=== PATIENT | female | born 1960 | race Caucasian/White ===

== ENCOUNTER → 2017-10-02 | Outpatient (CLI) | payer OTHER ==
--- NOTE | 2017-10-02 12:46 | MAMMOGRAPHY REPORT ---
BILATERAL DIGITAL SCREENING MAMMOGRAM TOMOSYNTHESIS WITH CAD: 10/02/2017 CLINICAL HISTORY: Routine screening. TECHNIQUE: Breast tomosynthesis in addition to standard 2D mammography was performed. Current study was also evaluated with a Computer Aided Detection (CAD) system. COMPARISON: Comparison is made to exams dated: 09/19/2016 mammogram, 09/14/2015 mammogram, 07/07/2014 mammogram, 07/06/2013 mammogram, 06/06/2011 mammogram, and 07/02/2012 mammogram - [facility]. BREAST COMPOSITION: There are scattered areas of fibroglandular density in both breasts. FINDINGS: The parenchymal pattern is unchanged. No developing mass, architectural distortion or clus ter of suspicious microcalcifications is seen in either breast. IMPRESSION: ACR BI-RADS CATEGORY 2: BENIGN There is no mammographic evidence of malignancy. A 1 year screening mammogram is recommended. The pa tient will receive written notification of the results. Approximately 10% of breast cancers are not detected with mammography. A negative mammographic report should not delay biopsy if a clinically suggestive mass is present. Lydia Kathleen M.D. ay/:10/02/2017 10:05:05 Premium Cancellation Clerk: Abraham HARRIS(Kai)(Dominique), [facility] letter sent: Normal 1/2 BI-RADS Code: ACR BI-RADS Category 2: Benign
== END | disposition home or self-care (01) ==
LOC: C.MAMM 09:23
PROVIDERS: ATTEND Family Medicine
DX: Z12.31 Encounter for screening mammogram for malignant neoplasm of breast (principal)

== ENCOUNTER 2021-04-07 10:59 | Inpatient (IN) ==
[2021-04-07] MEDS ORDERED: OPTIRAY 320 125ml IV ONE (11:14)
[2021-04-07] MEDS ORDERED: LABETALOL HCL IV 5 MG/ML 20ML IV ONE (11:22)
[2021-04-07 11:26] LABS: Basophils # (auto) 0.01 K/uL (0-0.2); Basophils % (auto) 0.1 %; Eosinophils # (auto) 0.11 K/uL (0-0.5); Eosinophils % (auto) 1.6 %; Hematocrit (blood only) 47.3 % (37-47); Hemoglobin 15.7 g/dL (12.0-16.0); Lymphocytes # (auto) 2.19 K/uL (1.2-3.4); Lymphocytes % (auto) 31.9 %; Mean Corpuscular Hemoglobin 29.3 pg (25-34); Mean Corpuscular Hgb Conc 33.2 g/dL (32-36); Mean Corpuscular Volume 88.4 fL (80-100); Mean Platelet Volume 9.9 fL (7.4-10.4); Monocytes # (auto) 0.49 K/uL (0.11-0.59); Monocytes % (auto) 7.1 %; Neutrophils # (auto) 4.06 K/uL (1.4-6.5); Neutrophils % (auto) 59.3 %; Platelet Count 368 K/uL (130-400); RDW Coefficient of Variation 12.7 % (11.5-14.5); RDW Standard Deviation 40.9 fL (36.4-46.3); Red Blood Count 5.35 M/uL (4.2-5.4); White Blood Count 6.86 K/uL (4.8-10.8)
[2021-04-07 11:37] LABS: INR 0.9 (0.9-1.1); Partial Thromboplastin Time 25.3 Seconds (21.0-31.0); Prothrombin Time 9.6 Seconds (9.0-12.0)
--- NOTE | 2021-04-07 11:37 | CT Scan Report ---
CT head/brain wo con CLINICAL HISTORY: Stroke Like Symptoms COMPARISON STUDY: No previous studies for comparison. TECHNIQUE: Axial CT of the brain is performed from the vertex to the skull base. IV contrast was not administered for this examination. A dose lowering technique was utilized adhering to the principles of ALARA. CT DOSE: FINDINGS: No acute intracranial hemorrhage, no midline shift or space occupying lesions. Questionable asymmetrical density within the anatomical region of the left MCA (series 2 image 10) is seen There is no evidence of pathologic ventricular dilatation. No acute depressed skull fracture seen. Visualized paranasal sinuses and mastoid air cells are patent and well-aerated. IMPRESSION: 1. No acute intracranial hemorrhage, no midline shift or space occupying lesions. Findings were [place] smitted to emergency Department during time of this dictation. 2. Questionable increase in attenuation within left MCA might represent thrombosis or artifact. ACT 112: Positive. There are findings on this exam that require communication between the performing entity and the patient following Patient Test Result Information Act ([place] Act 112) guidelines. The above report was generated using voice recognition software. It may contain grammatical, syntax o r spelling errors. Electronically signed by: Gloria Rae DO 04/07/2021 11:36 AM
[2021-04-07 11:42] LABS: Alanine Aminotransferase 29 U/L (12-78); Albumin Level 3.8 gm/dl (3.4-5.0); Aspartate Aminotransferase 15 U/L (15-37); BUN Creatinine Ratio 14.6 (10-20); Blood Urea Nitrogen 12 mg/dl (7-18); Carbon Dioxide 30 mmol/L (21-32); Chloride 103 mmol/L (98-107); Creatinine Clr Calc Pharmacy 86.8 ml/min; Est GFR (African American) 88.8 ml/min; Est GFR (Non-African American) 76.6 ml/min; Glucose 96 mg/dl (70-99); Magnesium 2.2 mg/dl (1.8-2.4); Potassium 3.6 mmol/L (3.5-5.1); Sodium 138 mmol/L (136-145)
[2021-04-07] MEDS ORDERED: CLOPIDOGREL BISULFATE 300 MG TAB PO STA (11:45)
[2021-04-07] MEDS ORDERED: ASPIRIN CHEW 324 MG PO STA ×2 (11:45→11:53)
[2021-04-07 11:47] LABS: Albumin Globulin Ratio 0.9 (0.9-2); Alkaline Phosphatase 67 U/L (45-117); Bilirubin,Total 0.5 mg/dl (0.2-1); Globulin 4.3 gm/dl (2.5-4.0); Total Protein 8.1 gm/dl (6.4-8.2); Troponin I < 0.015 ng/ml (0-0.045)
--- NOTE | 2021-04-07 11:48 | CT Scan Report ---
CT angio neck with con CLINICAL HISTORY: Stroke Like Symptoms COMPARISON STUDY: No previous studies for comparison. TECHNIQUE: CT angiography was performed from the aortic arch to the skull base. MIP imaging was perfo rmed. The patient was scanned in a dynamic helical fashion during intravenous administration of 119 c c of Optiray. A dose lowering technique was utilized adhering to the principles of ALARA. CT DOSE: Technique: CT angiogram of the carotid and vertebral arteries was obtained using intravenous contrast and 3-D reconstruction. NASCET criteria was utilized. Findings: Bilateral common carotid arteries are patent. Heavy partially calcified plaques are seen within the r ight and left carotid bulb. There is complete occlusion of the right internal carotid artery from its origin to the cavernosal po rtion. Reconstitution of the flow is seen within distal cavernosal aspect of the right internal carot id artery. Left internal carotid artery shows few eccentric calcified plaques and no evidence of hemodynamically significant stenosis. There is left predominant vertebral circulation. Left vertebral artery is patent throughout its cours e. There is diffuse narrowing of the V4 segment of the right vertebral artery and complete occlusion within its distal aspect. . There is no evidence of vertebral dissection. IMPRESSION: 1. Complete occlusion of the right internal carotid artery with mild reconstitution of the flow with in its distal cavernosal aspect. Findings were sent to emergency Department during time of this dicta tion. 2. Left predominant vertebral circulation. 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 ACT 112: Negative or not required by law. The above report was generated using voice recognition software. It may contain grammatical, syntax o r spelling errors. Electronically signed by: Gloria Rae DO 04/07/2021 11:47 AM
[2021-04-07] MEDS ORDERED: SODIUM CHLORIDE 0.9% 1000ML 1,000 ML IV SCH (12:00)
--- NOTE | 2021-04-07 12:08 | CT Scan Report ---
CT angio head w con CLINICAL HISTORY: Stroke Like Symptoms TECHNIQUE: CT angiography of the head was performed in a dynamic helical fashion during intravenous a dministration of 119 cc of Optiray. MIP imaging was performed. A dose lowering technique was utilized adhering to the principles of ALARA. CT DOSE: 1067.47 mGy.cm COMPARISON STUDY: No previous studies for comparison. FINDINGS: Reconstitution of the flow is seen within distal cavernosal and supraclinoid aspect of the right ICA which is diffusely narrowed with irregular border. Also there is diffuse narrowing of the right M1 se gment. Branches of middle and distal aspect of the right MCA are opacified. Left ICA is normally opacified. Slightly irregular contour of the left M1 segment is seen. M2 and distal branches of the left MCA are opacified. Right and left anterior cerebral artery are originated from the left anterior communicating artery. T here is diffuse narrowing of the left anterior cerebral artery throughout its course. Significant diffuse stenosis of the right anterior communicating artery is seen. Basilar artery is normal in caliber and well opacified. origin of the right posterior cerebral artery is seen with diffuse narrowing of its P1 segment and complete occlusion at the P2 segment (series 5 image 90) Left posterior cerebral artery is normally opacified. IMPRESSION: 1. Reconstitution of the flow within distal right ICA. Narrowing of the right MCA and right anterior communicating artery. 2. origin of the right posterior cerebral artery with diffuse narrowing of P1 segment and occl usion at the P2 segment. Findings were transmitted to emergency Department at the time of this dictat ion. 3. Diffuse narrowing and decreased opacification of the left anterior cerebral artery. ACT 112: Negative or not required by law. The above report was generated using voice recognition software. It may contain grammatical, syntax o r spelling errors. Electronically signed by: Gloria Rae DO 04/07/2021 12:07 PM
--- NOTE | 2021-04-07 13:13 | Emergency Department Note ---
History of Present Illness General Chief complaint: Stroke/CVA Symptoms Stated complaint: DIZZY,NUMBNESS TO HANDS,FACE,FEET,CANT WALK WELL Time Seen by Provider: 04/07/21 11:08 History of Present Illness Provider complaint: Left-sided weakness difficulty walking blurry vision left- sided facial numb Onset (ago): minute(s) 15 Location: left Current Pain Intensity: 0 Associated symptoms: no confusion, no chest pain, no cough, no fever/chills, no headaches, no nausea/vomiting, no seizure and no shortness of breath 60-year-old female presents emergency department for left-sided weakness, difficulty walking, left-sided facial numbness, and blurry vision. Patient reports her symptoms began 15 minutes ago. She states she was sitting at her desk working on a computer at a [employer] shift when she notes her symptoms. Patient denies any headache. She denies any blood thinner usage. She denies any trauma or fall. No fever. Home Medications Medication Instructions Recorded Confirmed Type aspirin [Aspirin Low Dose] 81 mg PO QAM 04/07/21 04/07/21 History bupropion HCl [Wellbutrin SR] 150 mg PO QAM 04/07/21 04/07/21 History hydrochlorothiazide 25 mg PO QAM 04/07/21 04/07/21 History metoprolol succinate [Toprol XL] 50 mg PO QAM 04/07/21 04/07/21 History multivitamin [One Daily 1 tab PO QAM 04/07/21 04/07/21 History Multivitamin] omeprazole 40 mg PO QAM 04/07/21 04/07/21 History Allergies Allergy/AdvReac Type Severity Reaction Status Date / Time LYNETTE Inhibitors AdvReac cough Verified 04/07/21 12:41 Past Med/Surg History Medical History (Updated 04/07/21 @ 15:00 by Jerald Jones) Depression Dyslipidemia GERD (gastroesophageal reflux disease) HTN (hypertension) Surgical History Hx of tubal ligation Family History (Updated 04/07/21 @ 13:36 by Aileen Rubin PA-C) Sister Stroke Coronary heart disease Brother Coronary heart disease Father Coronary heart disease Cancer Mother Hypertension Grandmother (Maternal) Diabetes Grandmother (Paternal) Diabetes Social History (Updated 04/07/21 @ 13:36 by Aileen Rubin PA-C) Smoking Status: Former smoker Hx Alcohol Use: No Hx Substance Use: No Preferred Language: Citizen Of [place] Feels Safe at Home: Yes Review of Systems A total of 10 systems reviewed and were otherwise negative Physical Exam Vital Signs Vital Signs - 24 hr 04/07/21 11:01 04/07/21 11:09 04/07/21 11:30 Temperature 36.5 C Temperature Source Temporal Artery Scan Pulse Rate 83 77 81 Pulse Rate from SpO2 Sensor 79 Respiratory Rate 18 Blood Pressure 221/124 H 223/124 H 217/115 H Blood Pressure Mean 156 157 149 Pulse Oximetry 98 98 Oxygen Delivery Method Room Air Sepsis Recent Fever Within 48 Hours No Sepsis New/Unexplained Change in Mental Status No Sepsis Action Taken by Nursing No Action Required 04/07/21 11:46 04/07/21 12:03 04/07/21 12:16 Temperature Temperature Source Pulse Rate 77 63 71 Pulse Rate from SpO2 Sensor 65 71 Respiratory Rate Blood Pressure 191/138 H 219/100 H Blood Pressure Mean 155 139 Pulse Oximetry 97 97 Oxygen Delivery Method Sepsis Recent Fever Within 48 Hours Sepsis New/Unexplained Change in Mental Status Sepsis Action Taken by Nursing 04/07/21 12:31 04/07/21 13:01 04/07/21 13:16 Temperature Temperature Source Pulse Rate 70 71 71 Pulse Rate from SpO2 Sensor Respiratory Rate 21 22 Blood Pressure 202/115 H 214/120 H 206/112 H Blood Pressure Mean 144 151 143 Pulse Oximetry Oxygen Delivery Method Sepsis Recent Fever Within 48 Hours Sepsis New/Unexplained Change in Mental Status Sepsis Action Taken by Nursing 04/07/21 13:31 Temperature Temperature Source Pulse Rate 68 Pulse Rate from SpO2 Sensor Respiratory Rate 14 Blood Pressure 178/111 H Blood Pressure Mean 133 Pulse Oximetry Oxygen Delivery Method Sepsis Recent Fever Within 48 Hours Sepsis New/Unexplained Change in Mental Status Sepsis Action Taken by Nursing Physical Exam GENERAL: She is oriented to person, place, and time. She appears well-developed and well-nourished. She does not appear distressed. HENT: Exam performed. -Head: Normocephalic and atraumatic. -Right Ear: External ear normal. No mastoid tenderness. -Left Ear: External ear normal. No mastoid tenderness. -Mouth/Throat: The oropharynx is clear and moist. No trismus in the jaw. No dental abscesses or uvula swelling. No oropharyngeal exudate or tonsillar abscesses. EYES: Conjunctivae and EOM are normal. Pupils are equal, round, and reactive to light. Right eye exhibits no discharge. Left eye exhibits no discharge. No scleral icterus. NECK: Normal range of motion. Neck supple. No JVD present. No spinous process tenderness present. No carotid bruit present. No rigidity. No tracheal deviation and normal range of motion present. No Brudzinski's sign and no Kernig's sign noted. CV: Normal rate, regular rhythm, normal heart sounds and intact distal pulses. There is no peripheral edema. Palpable radial pulses bue. PULM/CHEST: Effort normal and breath sounds normal. No respiratory distress. No stridor. She has no wheezes. She has no rales. -Chest Wall: She exhibits no tenderness. ABD: The abdomen is soft. Bowel sounds are normal. She has no distension. No mass is present. There is no tenderness. There is no rebound, no guarding, no Varma's sign and no tenderness at McBurney's point. Rovsig negative MUSC/SKEL: Normal range of motion. There is no peripheral edema, tenderness or deformity. LYMPH: No cervical adenopathy. NEURO: NIHSS: 2 (6a:1, 7:1) SKIN: Skin is warm and dry. She is not diaphoretic. PSYCH: She has a normal mood and affect. Behavior is normal. Judgment and thought content normal. Course Course 1108: The patient was evaluated in room B1. A complete history and physical exam was performed Cardiac monitoring: An order was placed for continuous cardiac monitoring. The monitor shows a rate of 70 with sinus rhythm Code stroke called 1120: Spoke with Dr. Jarad Stanley teleneurology will evaluate the patient. 1233: Dr. Abraham examined the patient and does not recommend TPA at this time. Patient will be loaded with Plavix 300 mg and aspirin 243 mg as she took 81 mg of aspirin this morning and admitted to the [facility] team for TIA. Imaging shows no ICH. There is complete occlusion of the right internal carotid artery with mild reconstitution of flow within the distal cavernousal aspect as well as origin of the right posterior cerebral artery with diffuse narrowing of P1 segment occlusion of the P2 segment. Dr. Miller states there is no acute intervention needed for this at this time. She does state that she recommends that the patient not be often movement and doing vigorous therapy as she states the patient is volume dependent and this could exacerbate her sympto ms. I did discuss these findings with the [facility] hospitalist team Sanjuanita who stated to admit to Dr. Mcclain. Administered Medications Sodium Chloride (Nss 1000ml) 1,000 mls @ 80 mls/hr IV .[id number] LEONARDO Stop: 05/07/21 11:59 Last Admin: 04/07/21 12:01 Dose: 80 mls/hr Documented by: [id number] Discontinued Medications Aspirin (Aspirin Chew 324 Mg) 243 mg PO NOW STA Stop: 04/07/21 11:54 Last Admin: 04/07/21 12:00 Dose: 243 mg Documented by: [id number] Clopidogrel Bisulfate (Clopidogrel Bisulfate 300 Mg Tab) 300 mg PO NOW STA Stop: 04/07/21 11:46 Last Admin: 04/07/21 11:52 Dose: 300 mg Documented by: [id number] Ioversol (Optiray 320 125ml) 119 ml IV ONCE ONE Stop: 04/07/21 11:15 Last Admin: 04/07/21 11:15 Dose: 119 ml Documented by: [id number] Medical Decision Making Laboratory Data Result diagrams: 04/07/21 11:15 04/07/21 11:15 Lab Results 04/07/21 04/07/21 04/07/21 Range/Units 11:15 11:15 11:15 WBC 6.86 (4.8-10.8) K/uL RBC 5.35 (4.2-5.4) M/uL Hgb 15.7 (12.0-16.0) g/dL Hct 47.3 H (37-47) % MCV 88.4 (80-100) fL MCH 29.3 (25-34) pg MCHC 33.2 (32-36) g/dL RDW Std Deviation 40.9 (36.4-46.3) fL RDW Coeff of Tiffany 12.7 (11.5-14.5) % Plt Count 368 (130-400) K/uL MPV 9.9 (7.4-10.4) fL Immature Gran % (Auto) 0.0 % Neut % (Auto) 59.3 % Lymph % (Auto) 31.9 % [place] % (Auto) 7.1 % Eos % (Auto) 1.6 % Baso % (Auto) 0.1 % Neut # (Auto) 4.06 (1.4-6.5) K/uL Lymph # (Auto) 2.19 (1.2-3.4) K/uL [place] # (Auto) 0.49 (0.11-0.59) K/uL Eos # (Auto) 0.11 (0-0.5) K/uL Baso # (Auto) 0.01 (0-0.2) K/uL Immature Gran # (Auto) 0.00 (0.00-0.02) K/uL PT 9.6 (9.0-12.0) Seconds INR 0.9 (0.9-1.1) APTT 25.3 (21.0-31.0) Seconds PTT Ratio 1.0 Sodium (136-145) mmol/L Potassium (3.5-5.1) mmol/L Chloride (98-107) mmol/L Carbon Dioxide (21-32) mmol/L Anion Gap (3-11) BUN (7-18) mg/dl Creatinine (0.6-1.2) mg/dl Est Cr Clr Drug Dosing ml/min Est GFR ( Amer) ml/min Est GFR (Non-Af Amer) ml/min BUN/Creatinine Ratio (10-20) Glucose (70-99) mg/dl POC Glucose (70-99) mg/dl Calcium (8.5-10.1) mg/dl Magnesium (1.8-2.4) mg/dl Total Bilirubin (0.2-1) mg/dl AST (15-37) U/L ALT (12-78) U/L Alkaline Phosphatase (45-117) U/L Troponin I (0-0.045) ng/ml Total Protein (6.4-8.2) gm/dl Albumin (3.4-5.0) gm/dl Globulin (2.5-4.0) gm/dl Albumin/Globulin Ratio (0.9-2) TSH (0.300-4.500) uIu/ml COVID-19 Eval Order SARS-CoV-2 (PCR) (Negative) Blood Type A Positive Antibody Screen NEGATIVE 04/07/21 04/07/21 04/07/21 Range/Units 11:15 11:15 11:16 WBC (4.8-10.8) K/uL RBC (4.2-5.4) M/uL Hgb (12.0-16.0) g/dL Hct (37-47) % MCV (80-100) fL MCH (25-34) pg MCHC (32-36) g/dL RDW Std Deviation (36.4-46.3) fL RDW Coeff of Tiffany (11.5-14.5) % Plt Count (130-400) K/uL MPV (7.4-10.4) fL Immature Gran % (Auto) % Neut % (Auto) % Lymph % (Auto) % [place] % (Auto) % Eos % (Auto) % Baso % (Auto) % Neut # (Auto) (1.4-6.5) K/uL Lymph # (Auto) (1.2-3.4) K/uL [place] # (Auto) (0.11-0.59) K/uL Eos # (Auto) (0-0.5) K/uL Baso # (Auto) (0-0.2) K/uL Immature Gran # (Auto) (0.00-0.02) K/uL PT (9.0-12.0) Seconds INR (0.9-1.1) APTT (21.0-31.0) Seconds PTT Ratio Sodium 138 (136-145) mmol/L Potassium 3.6 (3.5-5.1) mmol/L Chloride 103 (98-107) mmol/L Carbon Dioxide 30 (21-32) mmol/L Anion Gap 5.0 (3-11) BUN 12 (7-18) mg/dl Creatinine 0.83 (0.6-1.2) mg/dl Est Cr Clr Drug Dosing 86.8 ml/min Est GFR ( Amer) 88.8 ml/min Est GFR (Non-Af Amer) 76.6 ml/min BUN/Creatinine Ratio 14.6 (10-20) Glucose 96 (70-99) mg/dl POC Glucose 96 (70-99) mg/dl Calcium 10.0 (8.5-10.1) mg/dl Magnesium 2.2 (1.8-2.4) mg/dl Total Bilirubin 0.5 (0.2-1) mg/dl AST 15 (15-37) U/L ALT 29 (12-78) U/L Alkaline Phosphatase 67 (45-117) U/L Troponin I < 0.015 (0-0.045) ng/ml Total Protein 8.1 (6.4-8.2) gm/dl Albumin 3.8 (3.4-5.0) gm/dl Globulin 4.3 H (2.5-4.0) gm/dl Albumin/Globulin Ratio 0.9 (0.9-2) TSH 1.070 (0.300-4.500) uIu/ml COVID-19 Eval Order SARS-CoV-2 (PCR) (Negative) Blood Type Antibody Screen 04/07/21 04/07/21 Range/Units 12:20 12:20 WBC (4.8-10.8) K/uL RBC (4.2-5.4) M/uL Hgb (12.0-16.0) g/dL Hct (37-47) % MCV (80-100) fL MCH (25-34) pg MCHC (32-36) g/dL RDW Std Deviation (36.4-46.3) fL RDW Coeff of Tiffany (11.5-14.5) % Plt Count (130-400) K/uL MPV (7.4-10.4) fL Immature Gran % (Auto) % Neut % (Auto) % Lymph % (Auto) % [place] % (Auto) % Eos % (Auto) % Baso % (Auto) % Neut # (Auto) (1.4-6.5) K/uL Lymph # (Auto) (1.2-3.4) K/uL [place] # (Auto) (0.11-0.59) K/uL Eos # (Auto) (0-0.5) K/uL Baso # (Auto) (0-0.2) K/uL Immature Gran # (Auto) (0.00-0.02) K/uL PT (9.0-12.0) Seconds INR (0.9-1.1) APTT (21.0-31.0) Seconds PTT Ratio Sodium (136-145) mmol/L Potassium (3.5-5.1) mmol/L Chloride (98-107) mmol/L Carbon Dioxide (21-32) mmol/L Anion Gap (3-11) BUN (7-18) mg/dl Creatinine (0.6-1.2) mg/dl Est Cr Clr Drug Dosing ml/min Est GFR ( Amer) ml/min Est GFR (Non-Af Amer) ml/min BUN/Creatinine Ratio (10-20) Glucose (70-99) mg/dl POC Glucose (70-99) mg/dl Calcium (8.5-10.1) mg/dl Magnesium (1.8-2.4) mg/dl Total Bilirubin (0.2-1) mg/dl AST (15-37) U/L ALT (12-78) U/L Alkaline Phosphatase (45-117) U/L Troponin I (0-0.045) ng/ml Total Protein (6.4-8.2) gm/dl Albumin (3.4-5.0) gm/dl Globulin (2.5-4.0) gm/dl Albumin/Globulin Ratio (0.9-2) TSH (0.300-4.500) uIu/ml COVID-19 Eval Order Covid19 at [facility] SARS-CoV-2 (PCR) NEGATIVE (Negative) Blood Type Antibody Screen Imaging Data Radiologist's Impression: Head CT 04/07/21 11:12 CT head/brain wo con CLINICAL HISTORY: Stroke Like Symptoms COMPARISON STUDY: No previous studies for comparison. TECHNIQUE: Axial CT of the brain is performed from the vertex to the skull base. IV contrast was not administered for this examination. A dose lowering technique was utilized adhering to the principles of ALARA. CT DOSE: FINDINGS: No acute intracranial hemorrhage, no midline shift or space occupying lesions. Questionable asymmetrical density within the anatomical region of the left MCA (series 2 image 10) is seen There is no evidence of pathologic ventricular dilatation. No acute depressed skull fracture seen. Visualized paranasal sinuses and mastoid air cells are patent and well-aerated. IMPRESSION: 1. No acute intracranial hemorrhage, no midline shift or space occupying lesions. Findings were transmitted to emergency Department during time of this dictation. 2. Questionable increase in attenuation within left MCA might represent thrombosis or artifact. ACT 112: Positive. There are findings on this exam that require communication between the performing entity and the patient following Patient Test Result Information Act ([place] Act 112) guidelines. The above report was generated using voice recognition software. It may contain grammatical, syntax or spelling errors. Electronically signed by: Gloria Rae DO 04/07/2021 11:36 AM Head CTA 04/07/21 11:12 CT angio head w con CLINICAL HISTORY: Stroke Like Symptoms TECHNIQUE: CT angiography of the head was performed in a dynamic helical fashion during intravenous administration of 119 cc of Optiray. MIP imaging was performed. A dose lowering technique was utilized adhering to the principles of ALARA. CT DOSE: 1067.47 mGy.cm COMPARISON STUDY: No previous studies for comparison. FINDINGS: Reconstitution of the flow is seen within distal cavernosal and supraclinoid aspect of the right ICA which is diffusely narrowed with irregular border. Also there is diffuse narrowing of the right M1 segment. Branches of middle and dista l aspect of the right MCA are opacified. Left ICA is normally opacified. Slightly irregular contour of the left M1 segment is seen. M2 and distal branches of the left MCA are opacified. Right and left anterior cerebral artery are originated from the left anterior communicating artery. There is diffuse narrowing of the left anterior cerebral artery throughout its course. Significant diffuse stenosis of the right anterior communicating artery is seen. Basilar artery is normal in caliber and well opacified. origin of the right posterior cerebral artery is seen with diffuse narrowing of its P1 segment and complete occlusion at the P2 segment (series 5 image 90) Left posterior cerebral artery is normally opacified. IMPRESSION: 1. Reconstitution of the flow within distal right ICA. Narrowing of the right MCA and right anterior communicating artery. 2. origin of the right posterior cerebral artery with diffuse narrowing of P1 segment and occlusion at the P2 segment. Findings were transmitted to emergency Department at the time of this dictation. 3. Diffuse narrowing and decreased opacification of the left anterior cerebral artery. ACT 112: Negative or not required by law. The above report was generated using voice recognition software. It may contain grammatical, syntax or spelling errors. Electronically signed by: Gloria Rae DO 04/07/2021 12:07 PM Neck CTA 04/07/21 11:12 CT angio neck with con CLINICAL HISTORY: Stroke Like Symptoms COMPARISON STUDY: No previous studies for comparison. TECHNIQUE: CT angiography was performed from the aortic arch to the skull base. MIP imaging was performed. The patient was scanned in a dynamic helical fashion during intravenous administration of 119 cc of Optiray. A dose lowering technique was utilized adhering to the principles of ALARA. CT DOSE: Technique: CT angiogram of the carotid and vertebral arteries was obtained using intravenous contrast and 3-D reconstruction. NASCET criteria was utilized. Findings: Bilateral common carotid arteries are patent. Heavy partially calcified plaques are seen within the right and left carotid bulb. There is complete occlusion of the right internal carotid artery from its origin to the cavernosal portion. Reconstitution of the flow is seen within distal cavernosal aspect of the right internal carotid artery. Left internal carotid artery shows few eccentric calcified plaques and no evidence of hemodynamically significant stenosis. There is left predominant vertebral circulation. Left vertebral artery is patent throughout its course. There is diffuse narrowing of the V4 segment of the right vertebral artery and complete occlusion within its distal aspect. . There is no evidence of vertebral dissection. IMPRESSION: 1. Complete occlusion of the right internal carotid artery with mild reconstitution of the flow within its distal cavernosal aspect. Findings were sent to emergency Department during time of this dictation. 2. Left predominant vertebral circulation. 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 ACT 112: Negative or not required by law. The above report was generated using voice recognition software. It may contain grammatical, syntax or spelling errors. Electronically signed by: Gloria Rae DO 04/07/2021 11:47 AM ECG Data Indication: + weakness Rate (beats per minute): 77 Rhythm: + normal sinus ECG Intervals/blocks: + Normal QRS, + Normal MN and + Normal QT-c ECG ST segments: + Normal ST segments [facility] Narrative 1108: The patient was evaluated in room B1. A complete history and physical exam was performed Cardiac monitoring: An order was placed for continuous cardiac monitoring. The monitor shows a rate of 70 with sinus rhythm Code stroke called 1120: Spoke with Dr. Jarad Stanley teleneurology will evaluate the patient. 1233: Dr. Abraham examined the patient and does not recommend TPA at this time. Patient will be loaded with Plavix 300 mg and aspirin 243 mg as she took 81 mg of aspirin this morning and admitted to the [facility] team for TIA. Imaging shows no ICH. There is complete occlusion of the right internal carotid artery with mild reconstitution of flow within the distal cavernousal aspect as well as origin of the right posterior cerebral artery with diffuse narrowing of P1 segment occlusion of the P2 segment. Dr. Miller states there is no acute intervention needed for this at this time. She does state that she recommends that the patient not be often movement and doing vigorous therapy as she states the patient is volume dependent and this could exacerbate her symptoms. I did discuss these findings with the [facility] hospitalist team Sanjuanita who stated to admit to Dr. Mcclain. Impression & Plan TIA (transient ischemic attack) Discharge Plan Visit Data Chief Complaint: Stroke/CVA Symptoms Stated Complaint: DIZZY,NUMBNESS TO HANDS,FACE,FEET,CANT WALK WELL ED Provider: Jerald Jones Discharge Problem: TIA (transient ischemic attack) Patient Disposition: Admitted As Inpatient Forms Stand Alone Forms: My [facility] Prescriptions Prescriptions: No Action bupropion HCl [Wellbutrin SR] 150 mg tablet sustained-release 12 hr 150 mg PO QAM RF: 0 metoprolol succinate [Toprol XL] 50 mg tablet extended release 24 hr 50 mg PO QAM RF: 0 omeprazole 40 mg capsule,delayed release(DR/EC) 40 mg PO QAM RF: 0 hydrochlorothiazide 25 mg tablet 25 mg PO QAM RF: 0 multivitamin [One Daily Multivitamin] Tablet 1 tab PO QAM RF: 0 aspirin [Aspirin Low Dose] 81 mg Tablet,Delayed Release (Dr/Ec) 81 mg PO QAM RF: 0 Referrals Referrals: Roge Shen MD [Primary Care Provider] -
--- NOTE | 2021-04-07 13:19 | History & Physical Report ---
Date of Service April 07, 2021 Assessment & Plan (1) Stroke-like symptoms: Pt is 60 y/o F with PMH HTN, dyslipidemia, GERD, depression presented to ER with c/o blurry vision, facial numbness and left sided weakness started prior to arrival. Last known well 10:45AM. In ER pt afebrile, P: 83, RR: 18, BP: 221/124, 98% on room air. No leukocytosis, no significant electrolyte abnormality, negative troponin CT Head: No acute intracranial hemorrhage, no midline shift or space occupying lesions.Questionable increase in attenuation within left MCA might represent thrombosis or artifact. CTA Head: 1. Reconstitution of the flow within distal right ICA. Narrowing of the right MCA and right anterior communicating artery. 2. origin of the right posterior cerebral artery with diffuse narrowing of P1 segment and occlusion at the P2 segment. 3. Diffuse narrowing and decreased opacification of the left anterior cerebral artery. CTA Neck: 1. Complete occlusion of the right internal carotid artery with mild reconstitution of the flow within its distal cavernosal aspect. 2. Left predominant vertebral circulation. 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 While in ER pt with improvement of symptoms. TeleStroke evaluation recommended no TPA. And recommended holding on PT/OT for 24 hours. In ER pt was given 300mg Plavix, 243mg aspirin. -Tele to monitor for arrhythmias -lipids, A1c in am -TSH pending -MRI brain -echo with bubble study -aspiration precautions -PT/OT consult; recommend waiting 24 hours prior to therapy -start statin, plavix. Continue aspirin -allow permissive HTN, labetalol SBP>220 or DBP>120 in 1st 24 hrs -neurology consult (2) HTN (hypertension): Hypertensive in ER with BP 221/124 -Continue metoprolol succinate, HCTZ -Follow-up permissive hypertension, labetalol as needed (3) GERD (gastroesophageal reflux disease): -Continue PPI (4) Depression: Stable -Continue bupropion DVT Prophylaxis -SCDs Full Code as per discussion with pt Follows with Dr Shen for routine care Pt was seen and care coordinated with Dr Mcclain. See addendum History of Present Illness Chief Complaint: Face numbness, left sided weakness Primary Care Provider: Roge Shen MD Pt is 60 y/o F with PMH HTN, dyslipidemia, GERD, depression presented to ER with c/o facial numbness and left sided weakness started prior to arrival. Last known well 10:45AM. Reports was sitting at work at computer when started with bilateral eye blurry vision then with numbness sensation to bilateral cheeks. Tried to get up to walk and was lightheaded and felt like left leg and arm were week and had trouble ambulating. Denies any speech changes or noted facial drooping. Denies syncope, chest pain, shortness of breath. Denies personal history of stroke. Family history of stroke-sister. Denies fever/chills, diaphoresis, N/V/D/C, LINDER, vision loss, neck pain, orthopnea, palpitations, cough, sore throat, choking, otalgia, rhinorrhea, abdominal pain, extremity edema, rashes, urinary symptoms. While in ER pt with improvement of symptoms. TeleStroke evaluation Pt was given 300mg Plavix, 243mg aspirin. CT Head: No acute intracranial hemorrhage, no midline shift or space occupying lesions.Questionable increase in attenuation within left MCA might represent thrombosis or artifact. CTA Head: 1. Reconstitution of the flow within distal right ICA. Narrowing of the right MCA and right anterior communicating artery. 2. origin of the right posterior cerebral artery with diffuse narrowing of P1 segment and occlusion at the P2 segment. 3. Diffuse narrowing and decreased opacification of the left anterior cerebral artery. CTA Neck: 1. Complete occlusion of the right internal carotid artery with mild reconstitution of the flow within its distal cavernosal aspect. 2. Left predominant vertebral circulation. 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 Pt being admitted for further evaluation and treatment. Allergies Allergy/AdvReac Type Severity Reaction Status Date / Time LYNETTE Inhibitors AdvReac cough Verified 04/07/21 12:41 Home Medications Medication Instructions Recorded Confirmed Type aspirin [Aspirin Low Dose] 81 mg PO QAM 04/07/21 04/07/21 History bupropion HCl [Wellbutrin SR] 150 mg PO QAM 04/07/21 04/07/21 History hydrochlorothiazide 25 mg PO QAM 04/07/21 04/07/21 History metoprolol succinate [Toprol XL] 50 mg PO QAM 04/07/21 04/07/21 History multivitamin [One Daily 1 tab PO QAM 04/07/21 04/07/21 History Multivitamin] omeprazole 40 mg PO QAM 04/07/21 04/07/21 History Past Med/Surg History Medical History (Updated 04/07/21 @ 15:00 by Jerlad Jones) Depression Dyslipidemia GERD (gastroesophageal reflux disease) HTN (hypertension) Surgical History Hx of tubal ligation Family History (Updated 04/07/21 @ 13:36 by Aileen Rubin PA-C) Sister Stroke Coronary heart disease Brother Coronary heart disease Father Coronary heart disease Cancer Mother Hypertension Grandmother (Maternal) Diabetes Grandmother (Paternal) Diabetes Social History (Updated 04/07/21 @ 13:36 by Aileen Rubin PA-C) Smoking Status: Former smoker Hx Alcohol Use: No Hx Substance Use: No Preferred Language: American Feels Safe at Home: Yes Review of Systems Review of Systems: All systems reviewed & are unremarkable except as noted in HPI & below Physical Exam Physical Exam: General: no distress, obese Head: normocephalic, atraumatic Eyes: PERRL, EOM's intact, conjunctiva non-injected, anicteric ENT: normal inspection external ears, nose, mucous membranes moist Neck: supple, trachea midline, ROM intact Lungs: clear, no respiratory distress, no wheezing/rhonchi/rales CV: RRR, no murmur, no pretibial edema Abd: normal BS, soft, non-tender Ext: no cyanosis, no calf tenderness Neuro: A&O x 3, normal affect. Facial sensation is intact and symmetric, The face is strong and symmetric, Hearing grossly intact, Soft palate elevates symmetrically, no dysarthria, shoulder shrug intact, Tongue is midline, normal movement, no fasciculations. Strength 5/5 upper and lower extremities. Slow walking Skin: warm, dry Results & Data Results & [facility] ([facility]) Vital Signs (Past 12 Hours) Vital Signs Temp Pulse Resp BP Pulse Ox 04/07/21 12:16 71 97 04/07/21 12:03 63 219/100 H 97 04/07/21 11:46 77 191/138 H 04/07/21 11:30 81 217/115 H 98 04/07/21 11:09 77 223/124 H 04/07/21 11:01 36.5 C 83 18 221/124 H 98 Laboratory Results Short CBC 04/07/21 Range/Units 11:15 WBC 6.86 (4.8-10.8) K/uL Hgb 15.7 (12.0-16.0) g/dL Hct 47.3 H (37-47) % Plt Count 368 (130-400) K/uL BMP 04/07/21 11:15 Sodium 138 Potassium 3.6 Chloride 103 Carbon Dioxide 30 BUN 12 Creatinine 0.83 Glucose 96 Calcium 10.0 Cardiac Enzymes 04/07/21 Range/Units 11:15 Troponin I < 0.015 (0-0.045) ng/ml Liver Function 04/07/21 Range/Units 11:15 Total Bilirubin 0.5 (0.2-1) mg/dl AST 15 (15-37) U/L ALT 29 (12-78) U/L Alkaline Phosphatase 67 (45-117) U/L Albumin 3.8 (3.4-5.0) gm/dl Diagnostic Findings Head CT 04/07/21 11:12 CT head/brain wo con CLINICAL HISTORY: Stroke Like Symptoms COMPARISON STUDY: No previous studies for comparison. TECHNIQUE: Axial CT of the brain is performed from the vertex to the skull base. IV contrast was not administered for this examination. A dose lowering technique was utilized adhering to the principles of ALARA. CT DOSE: FINDINGS: No acute intracranial hemorrhage, no midline shift or space occupying lesions. Questionable asymmetrical density within the anatomical region of the left MCA (series 2 image 10) is seen There is no evidence of pathologic ventricular dilatation. No acute depressed skull fracture seen. Visualized paranasal sinuses and mastoid air cells are patent and well-aerated. IMPRESSION: 1. No acute intracranial hemorrhage, no midline shift or space occupying lesions. Findings were transmitted to emergency Department during time of this dictation. 2. Questionable increase in attenuation within left MCA might represent thrombosis or artifact. ACT 112: Positive. There are findings on this exam that require communication between the performing entity and the patient following Patient Test Result Information Act ([place] Act 112) guidelines. The above report was generated using voice recognition software. It may contain grammatical, syntax or spelling errors. Electronically signed by: Gloria Rae DO 04/07/2021 11:36 AM Head CTA 04/07/21 11:12 CT angio head w con CLINICAL HISTORY: Stroke Like Symptoms TECHNIQUE: CT angiography of the head was performed in a dynamic helical fashion during intravenous administration of 119 cc of Optiray. MIP imaging was performed. A dose lowering technique was utilized adhering to the principles of ALARA. CT DOSE: 1067.47 mGy.cm COMPARISON STUDY: No previous studies for comparison. FINDINGS: Reconstitution of the flow is seen within distal cavernosal and supraclinoid aspect of the right ICA which is diffusely narrowed with irregular border. Also there is diffuse narrowing of the right M1 segment. Branches of middle and distal aspect of the right MCA are opacified. Left ICA is normally opacified. Slightly irregular contour of the left M1 segment is seen. M2 and distal branches of the left MCA are opacified. Right and left anterior cerebral artery are originated from the left anterior communicating artery. There is diffuse narrowing of the left anterior cerebral artery throughout its course. Significant diffuse stenosis of the right anterior communicating artery is seen. Basilar artery is normal in caliber and well opacified. origin of the right posterior cerebral artery is seen with diffuse narrowing of its P1 segment and complete occlusion at the P2 segment (series 5 image 90) Left posterior cerebral artery is normally opacified. IMPRESSION: 1. Reconstitution of the flow within distal right ICA. Narrowing of the right MCA and right anterior communicating artery. 2. origin of the right posterior cerebral artery with diffuse narrowing of P1 segment and occlusion at the P2 segment. Findings were transmitted to emergency Department at the time of this dictation. 3. Diffuse narrowing and decreased opacification of the left anterior cerebral artery. ACT 112: Negative or not required by law. The above report was generated using voice recognition software. It may contain grammatical, syntax or spelling errors. Electronically signed by: Gloira Rae DO 04/07/2021 12:07 PM Neck CTA 04/07/21 11:12 CT angio neck with con CLINICAL HISTORY: Stroke Like Symptoms COMPARISON STUDY: No previous studies for comparison. TECHNIQUE: CT angiography was performed from the aortic arch to the skull base. MIP imaging was performed. The patient was scanned in a dynamic helical fashion during intravenous administration of 119 cc of Optiray. A dose lowering technique was utilized adhering to the principles of ALARA. CT DOSE: Technique: CT angiogram of the carotid and vertebral arteries was obtained using intravenous contrast and 3-D reconstruction. NASCET criteria was utilized. Findings: Bilateral common carotid arteries are patent. Heavy partially calcified plaques are seen within the right and left carotid bulb. There is complete occlusion of the right internal carotid artery from its origin to the cavernosal portion. Reconstitution of the flow is seen within distal cavernosal aspect of the right internal carotid artery. Left internal carotid artery shows few eccentric calcified plaques and no evidence of hemodynamically significant stenosis. There is left predominant vertebral circulation. Left vertebral artery is patent throughout its course. There is diffuse narrowing of the V4 segment of the right vertebral artery and complete occlusion within its distal aspect. . There is no evidence of vertebral dissection. IMPRESSION: 1. Complete occlusion of the right internal carotid artery with mild reconstitution of the flow within its distal cavernosal aspect. Findings were sent to emergency Department during time of this dictation. 2. Left predominant vertebral circulation. 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 ACT 112: Negative or not required by law. The above report was generated using voice recognition software. It may contain grammatical, syntax or spelling errors. Electronically signed by: Gloria Rae DO 04/07/2021 11:47 AM ECG Rate (beats per minute): 77 Rhythm: sinus rhythm Code Status & VTE Plan VTE Prophylaxis Plan VTE Prophylaxis will be ordered: Yes Supervising Physician Co-Signing Physician Notes Attending addendum The patient was seen and examined in medical telemetry unit She has history of hypertension and hyperlipidemia and was admitted with strokelike symptoms involving blurry vision and left-sided weakness and numbness Stroke alert was called in and she is not a candidate for TPA Apparent CT head and CTAs shows multivessel narrowing but no evidence of acute stroke Has been feeling much better since admission On examination Complains to have occipital headache without any other neuro symptoms except some weakness involving left-sided extremities Blood pressure has been on the higher side at 157/100 Chest-clear to auscultate bilaterally Heart-S1-S2, regular Abdomenbenign Extremitiesno edema 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 No facial asymmetry. No sensory impairment. Very minimal decrease in strength in left upper extremity Admission labs, EKG and imaging studies reviewed Presented with strokelike symptoms and awaiting MRI to rule out any definitive stroke CT of the head showed questionable increase in attenuation within the left MCA territory which could be thrombosis and/or artifact and CTAs showed significant narrowing of multiple blood vessels Will get vascular surgery evaluation down the line Did not receive any TPA but received aspirin and loaded with Plavix But received blood pressure control Neurology consulted Agree with assessment and plan as outlined above by SIOMARA Cordova DR
[2021-04-07] MEDS ORDERED: ACETAMINOPHEN 500 MG TAB PO STA (15:05)
[2021-04-07] MEDS ORDERED: LABETALOL HCL IV 5 MG/ML 20ML IV PRN (16:30)
[2021-04-07] MEDS ORDERED: PHARMACIST DISCHARGE MED REC CONSULT PRN (16:30)
[2021-04-07] MEDS ORDERED: GADOBUTROL 65ML VIAL IV ONE (17:15)
--- NOTE | 2021-04-07 18:19 | Magnetic Resonance Report ---
MRI OF THE BRAIN WITHOUT AND WITH IV CONTRAST CLINICAL HISTORY: stroke like symptoms COMPARISON STUDY: No previous studies for comparison. TECHNIQUE: MRI of the brain was performed from the vertex to the skull base utilizing various T1 and T2 weighted sequences. Following the IV administration of mL of Gadavist contrast, additional enhance d images were obtained. FINDINGS: Sagittal T1, axial diffusion, proton density and T2 weighted axial, coronal FLAIR, and pre and post a xial T1-weighted images were acquired. These were supplemented with post gadolinium coronal T1 weight ed images. No intra or extra-axial mass lesions are visualized. Patchy areas of restricted diffusion is seen within right basal ganglia and subcortical aspect of the right occipital lobe which might represent embolic phenomena versus other etiology. There is no evidence of ventricular dilatation. Proton density T2-weighted and FLAIR images reveal scattered foci of increased T2 signal within the w shantel matter, likely on a small vessel basis. There are no abnormal flow voids. No areas of abnormal enhancement is seen. Fluid signal is seen within mucosal of the right maxillary sinus and might represent sinusitis IMPRESSION: 1. Few punctate areas of restricted diffusion within the right basal ganglia and subcortical aspect of the right occipital lobe might represent embolic phenomenon versus other etiology. Findings will b e called to the patient's unit. 2. Chronic small vessel ischemia. 3. Sinusitis. ACT 112: Negative or not required by law. The above report was generated using voice recognition software. It may contain grammatical, syntax o r spelling errors. Electronically signed by: Gloria Rae DO 04/07/2021 6:18 PM
--- NOTE | 2021-04-07 21:06 | Electrocardiogram Report ---
Test Reason : Blood Pressure : / mmHG Vent. Rate : 077 BPM Atrial Rate : 077 BPM P-R Int : 156 ms QRS Dur : 072 ms QT Int : 360 ms P-R-T Axes : 052 023 052 degrees QTc Int : 407 ms Normal sinus rhythm Normal ECG No previous ECGs available Confirmed by Michele Ingram ([id number]) on 04/07/2021 9:06:22 PM Referred By: Confirmed By:David Ingram
[2021-04-07] MEDS: ACETAMINOPHEN 325 MG TAB PO PRN (21:17)
[2021-04-08 08:47] LABS: Basophils # (auto) 0.01 K/uL (0-0.2); Basophils % (auto) 0.1 %; Eosinophils # (auto) 0.05 K/uL (0-0.5); Eosinophils % (auto) 0.7 %; Hematocrit (blood only) 48.5 % (37-47); Hemoglobin 16.4 g/dL (12.0-16.0); Immature Granulocytes # (auto) 0.01 K/uL (0.00-0.02); Immature Granulocytes % (auto) 0.1 %; Lymphocytes # (auto) 1.99 K/uL (1.2-3.4); Lymphocytes % (auto) 26.5 %; Mean Corpuscular Hemoglobin 29.2 pg (25-34); Mean Corpuscular Hgb Conc 33.8 g/dL (32-36); Mean Corpuscular Volume 86.5 fL (80-100); Monocytes # (auto) 0.39 K/uL (0.11-0.59); Monocytes % (auto) 5.2 %; Neutrophils # (auto) 5.07 K/uL (1.4-6.5); Neutrophils % (auto) 67.4 %; Platelet Count 321 K/uL (130-400); RDW Coefficient of Variation 12.6 % (11.5-14.5); RDW Standard Deviation 40.1 fL (36.4-46.3); Red Blood Count 5.61 M/uL (4.2-5.4); White Blood Count 7.52 K/uL (4.8-10.8)
[2021-04-08] MEDS ORDERED: METOPROLOL SUCC 50MG EXT REL TAB PO SCH (09:00)
[2021-04-08] MEDS ORDERED: ASPIRIN 81 MG ECTAB PO SCH (09:00)
[2021-04-08] MEDS ORDERED: hydroCHLOROthiazide 25 MG TAB PO SCH ×2 (09:00)
[2021-04-08] MEDS ORDERED: PANTOprazole 40 MG TAB PO SCH (09:00)
[2021-04-08] MEDS ORDERED: buPROPion SR 150 MG TABCR PO SCH (09:00)
[2021-04-08] MEDS ORDERED: ATORVASTATIN 40 MG TAB PO SCH (09:00)
[2021-04-08] MEDS ORDERED: CLOPIDOGREL BISULFATE 75 MG TAB PO SCH (09:00)
[2021-04-08 09:06] LABS: Calcium 9.6 mg/dl (8.5-10.1); Est GFR (African American) 97.3 ml/min; Est GFR (Non-African American) 83.9 ml/min; Potassium 3.7 mmol/L (3.5-5.1)
[2021-04-08] MEDS: ACETAMINOPHEN 325 MG TAB PO PRN (09:53)
--- NOTE | 2021-04-08 12:16 | Hospitalist Progress Note ---
Date of Service April 08, 2021 Assessment & Plan (1) Right basal ganglia embolic stroke: Presented with strokelike symptoms as below MRI showed punctate areas of restricted diffusion within the right basal ganglia and subcortical aspect of right occipital lobe, likely secondary to embolism fr om carotids CTA did show complete occlusion of right internal carotid artery and complete occlusion of the distal V4 segment of the right vertebral artery Likely has cholesterol embolization Has been on aspirin and Plavix Neurology and vascular surgery have been consulted Symptomatically little better but neurologically worse Repeat CT scan showed-moderate sized acute infarct of the medial right temporal lobe demonstrates progressively worsened cytotoxic edema, small acute infarcts of the right thalamus and occipital lobe redemonstrated no acute intracranial hemorrhage and/or midline shift Appreciate neurology input and recommendation Condition seems to be worsening and the case was discussed with neurologist Dr. Nguyen and inside phone sales neurologist and will be transferred to [facility] for continued management Echo of the heart showed No valvular pathology, intra-atrial septum is intact with no evidence of an atrial septal defect, LV is normal in size with EF of 60 to 65%, RV systolic function is normal, left and right atria are normal CTA report is as below Has had a fall this morning Mechanical fall while going to the bathroom Has been getting worse neurologically (2) Stroke-like symptoms: Pt is 60 y/o F with PMH HTN, dyslipidemia, GERD, depression presented to ER with c/o blurry vision, facial numbness and left sided weakness started prior to arrival. Last known well 10:45AM. In ER pt afebrile, P: 83, RR: 18, BP: 221/124, 98% on room air. No leukocytosis, no significant electrolyte abnormality, negative troponin CT Head: No acute intracranial hemorrhage, no midline shift or space occupying lesions.Questionable increase in attenuation within left MCA might represent thrombosis or artifact. CTA Head: 1. Reconstitution of the flow within distal right ICA. Narrowing of the right MCA and right anterior communicating artery. 2. origin of the right posterior cerebral artery with diffuse narrowing of P1 segment and occlusion at the P2 segment. 3. Diffuse narrowing and decreased opacification of the left anterior cerebral artery. CTA Neck: 1. Complete occlusion of the right internal carotid artery with mild reconstitution of the flow within its distal cavernosal aspect. 2. Left predominant vertebral circulation. 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 While in ER pt with improvement of symptoms. TeleStroke evaluation recommended no TPA. And recommended holding on PT/OT for 24 hours. In ER pt was given 300mg Plavix, 243mg aspirin. -Tele to monitor for arrhythmias -lipids-cholesterol 253, triglyceride 92, LDL 179, HDL 56 -TSH -normal -MRI brain-as reported -aspiration precautions -start statin, plavix. Continue aspirin -allow permissive HTN, labetalol SBP>220 or DBP>120 in 1st 24 hrs -Blood pressure remains stable this morning -neurology consult-appreciate input and recommendation (3) HTN (hypertension): Hypertensive in ER with BP 221/124 -Continue metoprolol succinate, HCTZ -Follow-up permissive hypertension, labetalol as needed -We will be controlled (4) GERD (gastroesophageal reflux disease): -Continue PPI (5) Depression: Stable -Continue bupropion DVT Prophylaxis -SCDs Full Code as per discussion with pt Follows with Dr Shen for routine care Discussed with neurologist and neurosurgeon in [facility] The patient be transferred under their care for continued management Admission and Anticipated Discharge Date Admission Date: April 07, 2021 Subjective 04/08/2021 The patient was seen and examined in medical telemetry unit She has been much better and only complains to have numbness left upper extremity and minimal weakness involving the left upper and lower extremity Denies any visual symptoms, dysarthria or problem with swallowing Review of Systems Review of Systems: All systems reviewed and are unremarkable except as noted below Neurologic: + numbness (Left upper extremity) and + lack of coordination (Has had a minor fall this morning) Alert, awake and oriented x3 Physical Exam Physical Exam: Lying in bed comfortably Constitutional: well developed, well nourished and + obese; not ill appearing Eyes: PERRL, conjunctivae normal, anicteric sclerae ENMT: external ear and nose normal, oropharynx normal Neck: trachea midline, no thyromegaly Respiratory: no respiratory distress Auscultation: lungs clear to auscultation bilaterally Cardiovascular: Rate/Rhythm: regular rate and regular rhythm Heart Sounds: no murmur Extremities: + edema (Trace edema bilaterally) Gastrointestinal (Abdomen): Inspection/Auscultation: abdomen not distended Percussion/Palpation: abdomen soft; abdomen nontender Musculoskeletal: No acute arthritis in any joint Neurologic: Alert, awake and oriented x3. Left facial droop. minimal weakness involving the left-sided extremities. Myopic eyes Lymphatic: no cervical or axillary lymphadenopathy Results & Data Results & Data ([facility]) Vital Signs (Past 12 Hours) Vital Signs Temp Pulse Pulse Resp BP BP Pulse Ox 04/08/21 11:16 36.7 C 83 20 177/93 H 95 04/08/21 08:00 36.7 C 72 18 165/86 H 99 04/08/21 07:00 64 04/08/21 03:27 66 Laboratory Results Short CBC 04/08/21 Range/Units 08:32 WBC 7.52 (4.8-10.8) K/uL Hgb 16.4 H (12.0-16.0) g/dL Hct 48.5 H (37-47) % Plt Count 321 (130-400) K/uL BMP 04/08/21 08:32 Sodium 139 Potassium 3.7 Chloride 105 Carbon Dioxide 27 BUN 11 Creatinine 0.77 Glucose 101 H Calcium 9.6 Medications Administered Current Inpatient Medications Acetaminophen (Acetaminophen 325 Mg Tab) 650 mg PO Q4H PRN PRN Reason: Pain or Fever Stop: 05/07/21 16:29 Last Admin: 04/08/21 09:53 Dose: 650 mg Documented by: Aspirin (Aspirin 81 Mg Ectab) 81 mg PO [facility] Stop: 05/08/21 08:59 Last Admin: 04/08/21 08:25 Dose: 81 mg Documented by: Atorvastatin Calcium (Atorvastatin 40 Mg Tab) 40 mg PO [facility] Stop: 05/08/21 08:59 Last Admin: 04/08/21 08:25 Dose: 40 mg Documented by: Bupropion HCl (Bupropion Sr 150 Mg Tabcr) 150 mg PO [facility] Stop: 05/08/21 08:59 Last Admin: 04/08/21 08:25 Dose: 150 mg Documented by: Clopidogrel Bisulfate (Clopidogrel Bisulfate 75 Mg Tab) 75 mg PO [facility] Stop: 05/08/21 08:59 Last Admin: 04/08/21 08:25 Dose: 75 mg Documented by: Hydrochlorothiazide (Hydrochlorothiazide 25 Mg Tab) 25 mg PO [facility] Stop: 05/08/21 08:59 Last Admin: 04/08/21 08:25 Dose: 25 mg Documented by: Labetalol HCl (Labetalol Hcl Iv 5 Mg/Ml 20ml) 10 mg IV Q6H PRN PRN Reason: Hypertension Stop: 05/07/21 16:29 Metoprolol Succinate (Metoprolol Succ 50mg Ext Rel Tab) [facility] [place]: 05/08/21 08:59 Last Admin: 04/08/21 08:25 Dose: 50 mg Documented by: Miscellaneous Information (Pharmacist Discharge Med Rec Consult) 1 ea N/A UD PRN PRN Reason: Consult Stop: 05/07/21 16:29 Pantoprazole Sodium (Pantoprazole 40 Mg Tab) 40 mg PO [facility] Stop: 05/08/21 08:59 Last Admin: 04/08/21 08:25 Dose: 40 mg Documented by:
--- NOTE | 2021-04-08 13:57 | CT Scan Report ---
CT head/brain wo con CLINICAL HISTORY: 60 years-old Female with fu, r bg infarct, query increased lue weakness LINDER. Acute headache with strokelike symptoms TECHNIQUE: Multiple axial CT images of the head were obtained without contrast. A dose lowering tech nique was utilized adhering to the principles of ALARA. CT DOSE: 537.48 mGy.cm COMPARISON: 04/07/2021 FINDINGS: No acute intracranial hemorrhage, midline shift, intracranial mass, hydrocephalus, or abnormal extra- axial collection. 4 cm area of decreased attenuation involves the medial aspect of the right temporal lobe compatible with acute infarcts demonstrating aggressively worsened cytotoxic edema. Small acute infarcts of the right thalamus and occipital lobe redemonstrated. White matter hypodensities suggest usman of chronic microvascular ischemic disease. The calvarium is intact. The paranasal sinuses, mastoid air cells, and middle ear cavities are clear . IMPRESSION: 1. Moderate sized acute infarct of the medial right temporal lobe demonstrates progressively worsened cytotoxic edema. 2. Small acute infarcts of the right thalamus and occipital lobe redemonstrated. 3. No acute intracranial hemorrhage or midline shift. ACT 112: Negative or not required by law. The above report was generated using voice recognition software. It may contain grammatical, syntax o r spelling errors. Electronically signed by: Urbano Cardenas M.D. 04/08/2021 1:56 PM
--- NOTE | 2021-04-08 15:18 | Consultation Report ---
REASON FOR CONSULTATION: Stroke. HISTORY OF PRESENT ILLNESS: The patient is a 60-year-old with known hypertension. She was in her usual state of health. Yesterday about 11:00 in the morning while at work, she noted blurred vision and left-sided weakness and numbness. She has difficulty lateralizing the eyes as to whether it was one eye or both. Visual symptoms have persisted. She has noted some "bright floaters" in the right eye. She thinks they are similar to prior floaters. She denies that there is any change in her speech. There was no double vision, vertigo. She denies any difficulty with her swallowing, although she did indicate that she burped with eating her breakfast this morning. She has a mild mid occipital and frontal headache which began last evening. It is nonbothersome to her. She has no prior history of neurologic dysfunction. She did have vertigo 2 years ago with movement. She indicates that she had an MRI at that time and I am assuming that the MRI was noncontributory. She has recently had chiropractic manipulation of the neck with neck cracking and had dental work about a week or 10 days ago. She does not require prophylactic antibiotics for dental work. She has a very strong family history of early cardiovascular and cerebrovascular disease. Beginning in the 40s and 50s siblings have had heart disease, carotid disease and stroke. There is no family or personal history of DVT or PE. The patient has never had rheumatic fever or murmur. She was otherwise well and had no chest pain, palpitation, shortness of breath. No fevers, chills or sweats. Again, she states she feels improved today. The patient was seen by stroke neurology and they recommended loading with Plavix and aspirin. No TPA and avoiding hypotension. PAST MEDICAL HISTORY: Hypertension, dyslipidemia, although the patient was not on statin therapy, reflux and depression. SURGICAL HISTORY: Tubal ligation. SOCIAL HISTORY: Former smoker, nondrinker. Patient currently works. ALLERGIES: LYNETTE INHIBITORS, WHICH INCLUDE COUGH. MEDICATIONS AT HOME: Aspirin, bupropion, HCTZ, metoprolol, multiple vitamin, and omeprazole. The patient's CTA of the head and neck were as follows: I have reviewed the reports as well as images. There occlusion of the right internal carotid with reconstitution of flow within the distal right ICA, narrowing of the right MCA and right ICA. origin of the right DIELECTRIC TESTER with diffuse narrowing of the P1 segment and occlusion of the P2 segment, diffuse narrowing and decreased opacification of the left anterior cerebral artery. CTA of the neck complete occlusion of the right internal carotid. 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 MRI of the brain which I have reviewed, showed a few punctate areas of restricted diffusion within the right basal ganglia in subcortical aspect of the right occipital lobe, chronic small vessel ischemia and sinusitis. Labs notable for a white count of 6.86, H and H 15.7/47, platelet count 368. PT, PTT normal. Chemistry profile unremarkable. Total cholesterol 253, LDL 179, HDL 56, COVID negative. EKG: Sinus rhythm normal. Echocardiogram, no significant valvular pathology. The interatrial septum is intact without evidence of ASD. EF 60-65%. Left atrial size is normal. Great vessels. The aortic root is normal in size. PHYSICAL EXAMINATION: VITAL SIGNS: Initially, blood pressure was 202/115, most recent is 177/93. NEUROLOGIC: The patient is awake, but mildly sleepy. She indicates she did not sleep well. She is oriented x3, without right left confusion or aphasia. I do not appreciate any carotid bruits. Heart is regular rate and rhythm. Pupils are myotic left eye may be mildly more myotic than right eye. They are reactive. Because of the myosis, I had difficulty visualizing the optic nerves. Davidson appeared inconsistent in the right eye and possibly globally restricted. In the left eye davidson appear to be full. Motility was normal without nystagmus. There is mild flattening of the left nasolabial fold. Speech maybe mildly dysarthric, although the patient indicates that her speech is at baseline. There is no facial anesthesia. Tongue is midline and gag is hyperactive. Unfortunately, about 30 seconds after gagging, she vomited copiously. She indicates she has a hyperactive gag and can make herself vomit if she brushes her teeth. MOTOR EXAMINATION: Right upper extremity full. Left upper about 4/5, but with a prominent drift and decreased left rapid alternating movements. Right lower extremity full. Left lower extremity, probably 4+. [id number] is mildly clumsy on the left as is [id number]. No alejandro sensory loss is noted on the left. Reflexes are symmetric. Toes are downgoing. 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 Cautiously avoid hypotension. Begin statin therapy. I have placed a speech therapy consultation to assess speech and swallowing. The stroke neurologist recommended holding off on PT and OT to avoid hypotension associated with potentially mobilization. Permissive hypertension. I would like the patient to have a followup CT of the head today. It is unclear to me if she is at the same baseline, but she indicates that she is improved. The patient appears to be globally impaired in the right eye, likely representing embolic phenomenon to the right central retinal artery. The patient should see Ophthalmology at some point. We will follow with you. Job ID: [id number] BRYCE
[2021-04-08] MEDS ORDERED: STROKE PATIENT DISCHARGE STA (15:44)
--- NOTE | 2021-04-08 15:49 | Discharge Summary ---
Date of Service April 08, 2021 Admission HPI Per Admitting Provider Chief Complaint: Face numbness, left sided weakness Primary Care Provider: Roge Shen MD Pt is 60 y/o F with PMH HTN, dyslipidemia, GERD, depression presented to ER with c/o facial numbness and left sided weakness started prior to arrival. Last known well 10:45AM. Reports was sitting at work at computer when started with bilateral eye blurry vision then with numbness sensation to bilateral cheeks. Tried to get up to walk and was lightheaded and felt like left leg and arm were week and had trouble ambulating. Denies any speech changes or noted facial drooping. Denies syncope, chest pain, shortness of breath. Denies personal history of stroke. Family history of stroke-sister. Denies fever/chills, diaphoresis, N/V/D/C, LINDER, vision loss, neck pain, orthopnea, palpitations, cough, sore throat, choking, otalgia, rhinorrhea, abdominal pain, extremity edema, rashes, urinary symptoms. While in ER pt with improvement of symptoms. TeleStroke evaluation Pt was given 300mg Plavix, 243mg aspirin. CT Head: No acute intracranial hemorrhage, no midline shift or space occupying lesions.Questionable increase in attenuation within left MCA might represent thrombosis or artifact. CTA Head: 1. Reconstitution of the flow within distal right ICA. Narrowing of the right MCA and right anterior communicating artery. 2. origin of the right posterior cerebral artery with diffuse narrowing of P1 segment and occlusion at the P2 segment. 3. Diffuse narrowing and decreased opacification of the left anterior cerebral artery. CTA Neck: 1. Complete occlusion of the right internal carotid artery with mild reconstitution of the flow within its distal cavernosal aspect. 2. Left predominant vertebral circulation. 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 Pt being admitted for further evaluation and treatment. Course in ER: 1108: The patient was evaluated in room B1. A complete history and physical exam was performed Cardiac monitoring: An order was placed for continuous cardiac monitoring. The monitor shows a rate of 70 with sinus rhythm Code stroke called 1120: Spoke with Dr. Jarad Stanley teleneurology will evaluate the patient. 1233: Dr. Abraham examined the patient and does not recommend TPA at this time. Patient will be loaded with Plavix 300 mg and aspirin 243 mg as she took 81 mg of aspirin this morning [facility] Imaging shows no ICH. There is complete occlusion of the right internal carotid artery with mild reconstitution of flow within the distal cavernousal aspect as well as origin of the right posterior cerebral artery with diffuse narrowing of P1 segment occlusion of the P2 segment. Dr. Miller states there is no acute intervention needed for this at this time. She does state that she recommends that the patient not be often movement and doing vigorous therapy as she states the patient is volume dependent and this could exacerbate her symptoms. [facility] who stated to admit to Dr. Mcclain. Admission Exam Per Admitting Provider Physical Exam: General: no distress, obese Head: normocephalic, atraumatic Eyes: PERRL, EOM's intact, conjunctiva non-injected, anicteric ENT: normal inspection external ears, nose, mucous membranes moist Neck: supple, trachea midline, ROM intact Lungs: clear, no respiratory distress, no wheezing/rhonchi/rales CV: RRR, no murmur, no pretibial edema Abd: normal BS, soft, non-tender Ext: no cyanosis, no calf tenderness Neuro: A&O x 3, normal affect. Facial sensation is intact and symmetric, The face is strong and symmetric, Hearing grossly intact, Soft palate elevates symmetrically, no dysarthria, shoulder shrug intact, Tongue is midline, normal movement, no fasciculations. Strength 5/5 upper and lower extremities. Slow walking Skin: warm, dry Principal Diagnosis Acute medial right temporal lobe infarction with worsening cytotoxic edema, small acute infarcts of the right thalamus and occipital lobe, hypertension Discharge Exam Constitutional well developed, well nourished and + obese; not ill appearing Eyes PERRL, conjunctivae normal, anicteric sclerae ENMT external ear and nose normal, oropharynx normal Neck trachea midline, no thyromegaly Respiratory no respiratory distress Auscultation: lungs clear to auscultation bilaterally Cardiovascular Rate/Rhythm: regular rate and regular rhythm Heart Sounds: no murmur Extremities: + edema (Trace edema bilaterally) Gastrointestinal (Abdomen) Inspection/Auscultation: abdomen not distended Percussion/Palpation: abdomen soft; abdomen nontender Lymphatic no cervical or axillary lymphadenopathy Discharge Data Allergies Allergy/AdvReac Type Severity Reaction Status Date / Time LYNETTE Inhibitors AdvReac cough Verified 04/07/21 12:41 Consultations 04/07/21 12:17 ED Decision to Admit Stat 04/07/21 16:30 Consult Neurology Routine 04/07/21 17:42 Consult Vascular Surgery Routine 04/08/21 15:28 Burn CD for patient Routine Ordered Studies 04/07/21 11:12 CT angio head w con Stat CT angio neck with con Stat CT head/brain wo con Stat 04/07/21 16:30 MR brain wo/w con Routine 04/08/21 13:05 CT head/brain wo con Routine Hospital Course (1) Right basal ganglia embolic stroke: Presented with strokelike symptoms as below MRI showed punctate areas of restricted diffusion within the right basal ganglia and subcortical aspect of right occipital lobe, likely secondary to embolism from carotids CTA did show complete occlusion of right internal carotid artery and complete occlusion of the distal V4 segment of the right vertebral artery Likely has cholesterol embolization Has been on aspirin and Plavix Neurology and vascular surgery have been consulted Symptomatically little better but neurologically worse Repeat CT scan showed-moderate sized acute infarct of the medial right temporal lobe demonstrates progressively worsened cytotoxic edema, small acute infarcts of the right thalamus and occipital lobe redemonstrated no acute intracranial hemorrhage and/or midline shift Appreciate neurology input and recommendation Condition seems to be worsening and the case was discussed with neurologist Dr. Nguyen and branch operations manager neurologist and will be transferred to [facility] for continued management Echo of the heart showed No valvular pathology, intra-atrial septum is intact with no evidence of an atrial septal defect, LV is normal in size with EF of 60 to 65%, RV systolic function is normal, left and right atria are normal CTA report is as below Has had a fall this morning Mechanical fall while going to the bathroom Has been getting worse neurologically (2) Stroke-like symptoms: Pt is 60 y/o F with PMH HTN, dyslipidemia, GERD, depression presented to ER with c/o blurry vision, facial numbness and left sided weakness started prior to arrival. Last known well 10:45AM. In ER pt afebrile, P: 83, RR: 18, BP: 221/124, 98% on room air. No leukocytosis, no significant electrolyte abnormality, negative troponin CT Head: No acute intracranial hemorrhage, no midline shift or space occupying lesions.Questionable increase in attenuation within left MCA might represent thrombosis or artifact. CTA Head: 1. Reconstitution of the flow within distal right ICA. Narrowing of the right MCA and right anterior communicating artery. 2. origin of the right posterior cerebral artery with diffuse narrowing of P1 segment and occlusion at the P2 segment. 3. Diffuse narrowing and decreased opacification of the left anterior cerebral artery. CTA Neck: 1. Complete occlusion of the right internal carotid artery with mild reconstitution of the flow within its distal cavernosal aspect. 2. Left predominant vertebral circulation. 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 While in ER pt with improvement of symptoms. TeleStroke evaluation recommended no TPA. And recommended holding on PT/OT for 24 hours. In ER pt was given 300mg Plavix, 243mg aspirin. -Tele to monitor for arrhythmias -lipids-cholesterol 253, triglyceride 92, LDL 179, HDL 56 -TSH -normal -MRI brain-as reported -aspiration precautions -start statin, plavix. Continue aspirin -allow permissive HTN, labetalol SBP>220 or DBP>120 in 1st 24 hrs -Blood pressure remains stable this morning -neurology consult-appreciate input and recommendation (3) HTN (hypertension): Hypertensive in ER with BP 221/124 -Continue metoprolol succinate, HCTZ -Follow-up permissive hypertension, labetalol as needed -We will be controlled (4) GERD (gastroesophageal reflux disease): -Continue PPI (5) Depression: Stable -Continue bupropion DVT Prophylaxis -SCDs Full Code as per discussion with pt Follows with Dr Shen for routine care Discussed with neurologist and neurosurgeon in [facility] The patient be transferred under their care for continued management Total Time Total Time Spent Total Time Spent (In Minutes): 45 minutes Total Time Includes: Examination of the Patient, Discharge Planning, Medication Reconciliation and Communication With Other Providers Discharge Plan Discharge Items Patient Disposition: Transfer Acute Care Hospital Reason For Visit: STROKE LIKE SYMPTOMS Discharge Diagnosis: Acute medial right temporal lobe infarction with worsening cytotoxic edema, small acute infarcts of the right thalamus and occipital lobe, hypertension Condition on Discharge: Fair Activity: As commented below Activity Comment: Will be determined by PT and OT evaluation subsequently Non-emergency contact: Primary Care Provider Call non-emergency contact if: you have any medication questions and your symptoms worsen Follow-up/Referrals: Roge Shen MD [Primary Care Provider] - Diet: Heart Healthy Addtl Attending Provider Instructions: All of her inpatient medications were continued as follows: Current Inpatient Medications Acetaminophen (Acetaminophen 325 Mg Tab) 650 mg PO Q4H PRN PRN Reason: Pain or Fever Stop: 05/07/21 16:29 Last Admin: 04/08/21 09:53 Dose: 650 mg Documented by: Aspirin (Aspirin 81 Mg Ectab) 81 mg PO [facility] Stop: 05/08/21 08:59 Last Admin: 04/08/21 08:25 Dose: 81 mg Documented by: Atorvastatin Calcium (Atorvastatin 40 Mg Tab) 40 mg PO [facility] Stop: 05/08/21 08:59 Last Admin: 04/08/21 08:25 Dose: 40 mg Documented by: Bupropion HCl (Bupropion Sr 150 Mg Tabcr) 150 mg PO [facility] Stop: 05/08/21 08:59 Last Admin: 04/08/21 08:25 Dose: 150 mg Documented by: Clopidogrel Bisulfate (Clopidogrel Bisulfate 75 Mg Tab) 75 mg PO [facility] Stop: 05/08/21 08:59 Last Admin: 04/08/21 08:25 Dose: 75 mg Documented by: Hydrochlorothiazide (Hydrochlorothiazide 25 Mg Tab) 25 mg PO [facility] Stop: 05/08/21 08:59 Last Admin: 04/08/21 08:25 Dose: 25 mg Documented by: Labetalol HCl (Labetalol Hcl Iv 5 Mg/Ml 20ml) 10 mg IV Q6H PRN PRN Reason: Hypertension Stop: 05/07/21 16:29 Metoprolol Succinate (Metoprolol Succ 50mg Ext Rel Tab) 50 mg PO [facility] Stop: 05/08/21 08:59 Last Admin: 04/08/21 08:25 Dose: 50 mg Documented by: Miscellaneous Information (Pharmacist Discharge Med Rec Consult) 1 ea N/A UD PRN PRN Reason: Consult Stop: 05/07/21 16:29 Pantoprazole Sodium (Pantoprazole 40 Mg Tab) 40 mg PO [facility] Stop: 05/08/21 08:59 Last Admin: 04/08/21 08:25 Dose: 40 mg Documented by: Pending Studies at Discharge: No Stand-Alone Forms: [facility] Skilled Items Patient informed of condition?: Yes DNR: No Discharge Level of Care: Other Communicable Disease: No Discharge Prognosis: Deteriorating Lines: None Urinary Catheter: No Medications and DC Order Prescriptions: Discontinued bupropion HCl [Wellbutrin SR] 150 mg tablet sustained-release 12 hr 150 mg PO QAM RF: 0 metoprolol succinate [Toprol XL] 50 mg tablet extended release 24 hr 50 mg PO QAM RF: 0 omeprazole 40 mg capsule,delayed release(DR/EC) 40 mg PO QAM RF: 0 hydrochlorothiazide 25 mg tablet 25 mg PO QAM RF: 0 multivitamin [One Daily Multivitamin] Tablet 1 tab PO QAM RF: 0 aspirin [Aspirin Low Dose] 81 mg Tablet,Delayed Release (Dr/Ec) 81 mg PO QAM RF: 0 Discharge Orders: Discharge Order (Routine); Ordered 04/08/21 Ordered By: Viral Mcclain Admission Data Admit Date/Time: 04/07/21 13:17 Attending Provider: Viral Mcclain Admit Provider: Viral Mcclain Primary Care Provider: Roge Shen Other Providers: Viral Mcclain ; Malia Dumont ; Escobar Aldrich
--- NOTE | 2021-04-08 16:28 | Progress Notes ---
This is a note of communication between myself and Dr. Mcclain. I ordered a followup CT of the head on this patient as I believed her to be somewhat different compar ed to how it described yesterday. These findings include mild dysarthria, flattened left nasolabial fold, very impaired visual davidson diffusely in the right eye, miotic pupils with left eye being mildl y larger than right eye. Left arm 4/5 with significant dystaxia related to weakness and left drift. Left leg, probably 4+/5 with dystaxia on the basis of weakness. The patient also was mildly sleepy f or the exam. Her CT of the head shows moderate size acute infarction in the right medial temporal lo be demonstrating progressively worse cytotoxic edema, small acute infarcts in the right thalamus, occ ipital lobe redemonstrated. In comparison to her MRI, which was performed last night, which showed fe w punctate areas of restricted diffusion in the right base of the ganglia subcortical right occipital lobe might represent an embolic phenomenon. My clinical impression is that this patient sounds as if she is mildly worse, the sleepiness and miot ic pupils concern me for a possible brain mass effect from the right MCA and medial temporal lobe/rig ht MCA infarction on the brainstem. I would recommend transfer to a [facility] for further monitoring and evaluation. I am concerned that the patient may be developing malignant right MCA ed karyn and could need surgical intervention. Dr. Mcclain will call [facility], who did the in ial stroke consultation. Job ID: [id number]
[2021-04-09 07:15] LABS: Estimated Average Glucose 108 mg/dl; Hemoglobin A1C 5.4 % (4.5-5.6)
--- NOTE | 2021-04-09 11:04 | Consultation ---
Date of Consultation April 09, 2021 History of Present Illness Attending Physician: Virla Mcclain MD History of Present Illness patient was transferred prior to being seen, so no vascular surgery consultation was performed on this patient. Allergies Allergy/AdvReac Type Severity Reaction Status Date / Time LYNETTE Inhibitors AdvReac cough Verified 04/07/21 12:41 Patient History Medical History (Updated 04/08/21 @ 12:11 by Viral Mcclain MD) Depression Dyslipidemia GERD (gastroesophageal reflux disease) HTN (hypertension) Surgical History Hx of tubal ligation Family History (Updated 04/07/21 @ 13:36 by Aileen Rubin PA-C) Sister Stroke Coronary heart disease Brother Coronary heart disease Father Coronary heart disease Cancer Mother Hypertension Grandmother (Maternal) Diabetes Grandmother (Paternal) Diabetes Social History (Updated 04/07/21 @ 13:36 by Aileen Rubin PA-C) Smoking Status: Former smoker Hx Alcohol Use: No Hx Substance Use: No Preferred Language: [place] Communication Ability: Effective Juvenile Court Judge Required: No Beliefs That Will Affect Care: None Current Living Situation: Alone Other Information That Helps Us Care for You: No Feels Safe at Home: Yes Safety Concerns: Feels Safe At This Time Assistive Devices: Walker
== END 2021-04-08 20:32 | disposition short-term general hospital (02) | DRG 64 ==
LOC: ED 10:59 → 2N 13:17